=== PATIENT | male | born 1985 | race Two or more races ===

== ENCOUNTER 2017-11-09 15:43 | Emergency (ER) | payer SELFPAY ==
[2017-11-09 15:44] VITALS: BP 145/66; PULSE 66; RESP 12; TEMP 98.2; O2SAT 99
--- NOTE | 2017-11-09 18:08 | PD ---
HPI Chief Complaint: Wound/Suture/Staple Re-Check Time Seen by Provider: 17:14 Travel History International Travel<30 days: No Contact w/Intl Traveler<30days: No Traveled to known affect area: No History of Present Illness HPI 32-year-old Upper Sor[place]-speaking male presents to the emergency department for evaluation of left second finger. Patient was here in October 21, 2017 and had sutures placed to the distal aspect of the left third finger just above the DIP joint. Patient came back on October 31, 2017 to have the sutures removed. He has some swelling at that time and difficulty moving the DIP joint, but it was believed due to the fact that he was in a splint for 10 days without moving the finger. Patient comes today because still having difficulty moving the distal aspect of the affected digit swelling and pain. No fevers or chills. He denies any redness. He is not currently on any medications. Moderate severity. Due to the fact the patient is [place] Sor[place] history and physical were done through official senior pensions administrator. [facility] Social History Alcohol Use: No Tobacco Use: No Substance Use: No Allergies-Medications (Allergen,Severity, Reaction): Coded Allergies: No Known Allergies (Unverified , 11/09/17) Reported Meds & Prescriptions Reported Meds & Active Scripts Active Keflex (Cephalexin) 500 Mg Capsule 500 Mg PO Q6H 10 Days Bactrim DS (Sulfamethoxazole-Trimethoprim) 800-160 Mg Tab 1 Tab PO BID Review of Systems Except as stated in HPI: all other systems reviewed are Neg Physical Exam Narrative GENERAL: Well-nourished, well-developed male patient, afebrile. SKIN: Focused skin assessment warm/dry. Patient has healing laceration to the left second finger over the volar surface just above the DIP joint. There is no erythema or drainage from incision. He has swelling above the incision with pain to palpation, but no erythema. There is no pain to palpation over the dorsal aspect of the finger. Patient is only minimally able to flex the DIP joint on the affected finger. HEAD: Normocephalic. Atraumatic. EYES: No scleral icterus. No injection or drainage. NECK: Supple, trachea midline. No JVD or lymphadenopathy. CARDIOVASCULAR: Regular rate and rhythm without murmurs, gallops, or rubs. RESPIRATORY: Breath sounds equal bilaterally. No accessory muscle use. Lungs sounds are clear to auscultation. MUSCULOSKELETAL: No cyanosis, or edema. Data Data Last Documented VS Vital Signs Date Time Temp Pulse Resp B/P (MAP) Pulse Ox O2 Delivery O2 Flow Rate FiO2 11/09/17 15:44 98.2 66 12 145/66 (92) 99 Orders Orders Ed Discharge Order (11/09/17 18:10) MDM Medical Decision Making Medical Screen Exam Complete: Yes Emergency Medical Condition: Yes Medical Record Reviewed: Yes Differential Diagnosis Cellulitis versus felon versus septic joint versus difficulty moving due to splint Narrative Course 32-year-old male presents to the emergency department for evaluation of left second finger injury. My attending physician, Dr. Lopez, examined the patient with me. There is no erythema or warmth. He does have limited range of motion over the DIP joint, but infection does not appear likely. My attending physician instructed me to perform a digital block and make a small incision with a scalpel to see if any purulent drainage was obtained. The patient gives verbal consent through senior pensions administrator for this. However, upon insertion scalpel, no purulent drainage was noted. There is no evidence of a felon at this time. He will be started on Bactrim and Keflex for possible infection. He is strongly encouraged to follow-up with a hand surgeon. He verbalizes agreement. The patient was discharged in stable condition with instructions, including return instructions and follow up instructions. Procedures Procedure Narrative INCISION AND DRAINAGE OF ABSCESS: The area was prepped and was sterilely draped. A digital block with 1% lidocaine and 0.5% Marcaine was used to anesthetize the area. The area was properly anesthetized. A number 11 scalpel was used to make a 0.5-cm incision across the area of the abscess. Cultures were obtained. The abscess was drained an irrigated with normal saline. Sterile dressing applied. Diagnosis Primary Impression: Cellulitis, finger Qualified Codes: L03.012 - Cellulitis of left finger Referrals: Hand Surgeon call for appointment Patient Instructions: Cellulitis (ED), General Instructions Additional Instructions: Clean finger twice daily with soap and water and apply [id number] antibiotic ointment. Take antibiotics as instructed until gone. Follow-up with a hand surgeon. Return to the emergency department for any acute worsening of symptoms. Med/Other Pt SpecificInfo: Prescription(s) given Scripts Cephalexin (Keflex) 500 Mg Capsule 500 MG PO Q6H for Infection for 10 Days, #40 CAP 0 Refills Prov: Patricia De La Vega 11/09/17 Sulfamethoxazole-Trimethoprim (Bactrim DS) 800-160 Mg Tab 1 TAB PO BID for Infection, #20 TAB 0 Refills Prov: Patricia De La Vega 11/09/17 Disposition: 01 DISCHARGE HOME Condition: Stable Patricia De La Vega Nov 09, 2017 18:08
[2017-11-09] MEDS ORDERED: CEPH-460 PO (18:09)
[2017-11-09] MEDS ORDERED: BACT800T5 PO (18:09)
== END 2017-11-09 18:24 | disposition home or self-care (01) ==
LOC: NEPK 15:43
DX: L03.012 Cellulitis of left finger (principal)
CPT/HCPCS: 10060